=== PATIENT | male | born 1940 | race Caucasian/White ===

== ENCOUNTER 2017-01-15 08:00 | Outpatient (CLI) | payer MEDICARE | END 2017-01-15 08:01 | disposition home or self-care (01) | DX: C25.1 Malignant neoplasm of body of pancreas (principal); E78.2 Mixed hyperlipidemia ==

== ENCOUNTER 2017-01-18 09:15 | Outpatient (CLI) | payer MEDICARE | END 2017-01-18 09:16 | disposition home or self-care (01) | DX: I48.2 Chronic atrial fibrillation (principal); D75.89 Other specified diseases of blood and blood-forming organs ==

== ENCOUNTER 2017-01-26 07:59 | Outpatient (CLI) | payer MEDICARE | END 2017-01-26 08:00 | disposition home or self-care (01) | DX: I48.2 Chronic atrial fibrillation (principal); I51.7 Cardiomegaly; I07.1 Rheumatic tricuspid insufficiency ==